=== PATIENT | male | born 1965 | race Caucasian/White ===

== ENCOUNTER → 2017-02-23 | Outpatient (CLI) | payer BC ==
[2017-02-23 20:43] LABS: Basophils % (A) 1 %; CH 32.1; CHCM 33.4; Eosinophils % (A) 1 %; HCT 41.8 % (39.0-53.0); HDW 2.44; HGB 14.1 gm/dL (13.0-17.5); Luc # (Auto) 0.08; Luc % (Auto) 1; Lymphocytes # (A) 0.9 k/uL (1.0-4.8); Lymphocytes % (A) 17 %; MCH 32.5 pg (25.0-35.0); MCHC 33.7 g/dL (31.0-37.0); MCV 96.5 fL (80.0-100.0); Mean Platelet Volume 8.5; Monocytes # (A) 0.4 k/uL (0-1.0); Monocytes % (A) 7 %; Neutrophils # (A) 3.8 k/uL (1.3-7.7); Neutrophils % (A) 73 %; RBC 4.33 m/uL (4.30-5.90); RDW 12.6 % (11.5-15.5); WBC 5.2 k/uL (3.8-10.6); WBC (Perox) 4.83
[2017-02-23 20:44] LABS: ALT 47 U/L (21-72); AST 18 U/L (17-59); Alkaline Phosphatase 77 U/L (38-126); Anion Gap 12 mmol/L; Blood Urea Nitrogen 11 mg/dL (9-20); Calcium 9.8 mg/dL (8.4-10.2); Carbon Dioxide 22 mmol/L (22-30); Chloride 110 mmol/L (98-107); Cholesterol 145 mg/dL (<200); Glucose 100 mg/dL (74-99); HDL Cholesterol 46 mg/dL (40-60); Non-African American GFR(MDRD) >60 (>60 ml/min/1.73 sqM); Potassium 4.4 mmol/L (3.5-5.1); Sodium 144 mmol/L (137-145); Total Bilirubin 0.3 mg/dL (0.2-1.3); Total Protein 6.7 g/dL (6.3-8.2); Triglycerides 53 mg/dL (<150)
== END ==
LOC: MMGSC 10:27
PROVIDERS: ATTEND Family Medicine
DX: Z00.00 Encounter for general adult medical examination without abnormal findings (principal); Z12.5 Encounter for screening for malignant neoplasm of prostate
CPT/HCPCS: 84439; 80061; 80053; 84443; 85025; 36415; G0103

== ENCOUNTER 2018-02-21 09:44 | Emergency (ER) | payer BC, OTHER ==
[2018-02-21 09:50] VITALS: BP 147/89; PULSE 80; RESP 20; TEMP 97.8
--- NOTE | 2018-02-21 10:20 | XR ---
EXAMINATION TYPE: XR forearm LT DATE OF EXAM: 02/21/2018 CLINICAL HISTORY: Tripping injury with pain. TECHNIQUE: Two views of the left forearm are obtained. COMPARISON: None. FINDINGS: There is no acute fracture or dislocation seen in the left radius or ulna. The left elbow and wrist joints appear within normal limits. The overlying soft tissue appears within normal limit s. IMPRESSION: There is no acute fracture or dislocation seen in the left radius or ulna.
--- NOTE | 2018-02-21 10:39 | ED ---
Upper Extremity HPI - General Chief Complaint: Extremity Injury, Upper Stated Complaint: [facility] - lt arm injury Time Seen by Provider: 02/21/18 10:01 Source: patient, RN notes reviewed Mode of arrival: ambulatory Limitations: no limitations - History of Present Illness Initial Comments: 52-year-old male present emergency department to complaint of left arm pain. Patient states she tripped over some rebar yesterday fell onto his left arm. He states he has pain with pronation supination and with wrist flexion- extension. Patient states that he's had no prior injuries to his left arm. He has no pain above his left elbow he denies any open lacerations no bruising noted. - Related Data Home Medications Medication Instructions Recorded Confirmed No Known Home Medications [No 02/21/18 02/21/18 Known Home Medications] Allergies Allergy/AdvReac Type Severity Reaction Status Date / Time Penicillins Allergy Rash/Hives Verified 02/21/18 09:57 Review of Systems ROS Statement: Those systems with pertinent positive or pertinent negative responses have been documented in the HPI. ROS Other: All systems not noted in ROS Statement are negative. Past Medical History Past Medical History: No Reported History History of Any Multi-Drug Resistant Organisms: None Reported Past Surgical History: No Surgical Hx Reported Past Psychological History: No Psychological Hx Reported Smoking Status: Never smoker Past Alcohol Use History: None Reported Past Drug Use History: None Reported General Exam Limitations: no limitations General appearance: alert, in no apparent distress Head exam: Present: atraumatic, normocephalic, normal inspection Eye exam: Present: normal appearance, PERRL, EOMI. Absent: scleral icterus, conjunctival injection, periorbital swelling Respiratory exam: Present: normal lung sounds bilaterally. Absent: respiratory distress, wheezes, rales, rhonchi, stridor Cardiovascular Exam: Present: regular rate, normal rhythm, normal heart sounds. Absent: systolic murmur, diastolic murmur, rubs, gallop, clicks Extremities exam: Present: other (Left forearm there is moderate tenderness to the mid to distal forearm no iris deformity pain with pronation supination no wrist tenderness) Skin exam: Present: warm, dry, intact, normal color. Absent: rash Course Vital Signs 02/21/18 09:47 Temperature 97.8 F Pulse Rate 80 Respiratory 20 Rate Blood Pressure 147/89 O2 Sat by Pulse 99 Oximetry Procedures - Orthopedic Splinting/Casting Injury #1 Side: left Upper Extremity Injury Location: short arm, wrist Upper Extremity Immobilizer: volar splint, synthetic pre-padded splint Medical Decision Making - Medical Decision Making 52-year-old male presented from for left arm injury. Patient has a fracture of his left wrist. Patient was splinted and will follow-up with orthopedics. Disposition Clinical Impression: Left wrist fracture Disposition: HOME SELF-CARE Condition: Stable Instructions: Arm Fracture in Adults (ED) Additional Instructions: Please return to the Emergency Department if symptoms worsen or any other concerns. Is patient prescribed a controlled substance at d/c from ED?: No Referrals: Mariel Paulson MD [Primary Care Provider] - 1-2 days Raghav Navarro DO [Doctor of Osteopathic Medicine] - 1-2 days Time of Disposition: 10:53
--- NOTE | 2018-02-21 10:43 | XR ---
EXAMINATION TYPE: XR wrist complete LT DATE OF EXAM: 02/21/2018 CLINICAL HISTORY: Left wrist pain after fall injury TECHNIQUE: Frontal, lateral, scaphoid, and oblique images of the left wrist are obtained. COMPARISON: Same day left forearm x-ray FINDINGS: There is advanced degenerative change distal scaphoid articulation with trapezium and trap ezoid with marked joint space loss, sclerosis, and subchondral cystic change. There is suspicious li near lucency through the distal radius identified on the frontal and oblique images as well as scapho id view. Distal ulna is intact. The overlying soft tissue appears unremarkable. IMPRESSION: There is suspected acute comminuted nondisplaced intra-articular fracture through distal radial meta-epiphysis. This is better seen on dedicated wrist x-rays. (Initial encounter close type post traumatic fracture)
== END 2018-02-21 11:35 | disposition home or self-care (01) ==
LOC: EC 09:44
DX: S59.202A Unspecified physeal fracture of lower end of radius, left arm, initial encounter for closed fracture (principal); Z88.0 Allergy status to penicillin; W18.09XA Striking against other object with subsequent fall, initial encounter; Y99.0 Civilian activity done for income or pay
CPT/HCPCS: 29125; 99283

== ENCOUNTER → 2018-03-05 | Outpatient (CLI) | payer OTHER ==
--- NOTE | 2018-03-05 10:56 | XR ---
EXAMINATION TYPE: XR hand complete RT DATE OF EXAM: 03/05/2018 CLINICAL HISTORY: pain TECHNIQUE: Frontal, lateral and oblique images of the right hand are obtained. COMPARISON: None. FINDINGS: Avulsion fracture at the dorsal base of the distal phalanx right fifth digit. Displacement of 2.3 mm. Soft tissue swelling and deformity. IMPRESSION: Avulsion fracture at the dorsal base of the distal phalanx right fifth digit. ICD 10 closed FRACTURE, INITIAL EVALUATION
== END | disposition home or self-care (01) ==
LOC: RADXRMAIN 10:27
PROVIDERS: ATTEND Emergency Medicine
DX: S62.636A Displaced fracture of distal phalanx of right little finger, initial encounter for closed fracture (principal)